=== PATIENT | female | born 1935 | race Caucasian/White ===

== ENCOUNTER → 2017-05-08 | Outpatient (CLI) | payer MEDICARE ==
[~2017-05-08] MED LIST: ALENDRONATE PO; ALPHAGAN 5 ML5 ML; CALCIUM 500500 M1 PO; CITRACAL PO; CYCLOBENZAPRINE10 MG PO; Ecotrin325 MG PO; FOSAMAX70 MG PO; LOVENOX30 MG/0.3 SC; SERTRALINE HCL50 MG PO; SERTRALINE PO; VICODIN 5/500 505 MG PO; VYTORIN 10 MG-21 TA1 PO; [UNRECOGNIZED DRUG - OTHER] PO
[2017-05-08 10:43] LABS: CREATININE 1.23 mg/dL (0.55-1.02); POTASSIUM 3.9 mmol/L (3.5-5.1)
[2017-05-08 10:50] LABS: THYROID STIM HORMONE (HS) 2.49 uIU/ml (0.358-4.75)
== END | disposition home or self-care (01) ==
LOC: LAB 09:48
PROVIDERS: Family Medicine
DX: I10 Essential (primary) hypertension (principal); E78.00 Pure hypercholesterolemia, unspecified; F02.80 Dementia in other diseases classified elsewhere, unspecified severity, without behavioral disturbance, psychotic disturbance, mood disturbance, and anxiety

== ENCOUNTER 2019-01-28 21:01 | Inpatient (IN) | payer MEDICARE ==
[~2019-01-28] VITALS: Ht 154.9 cm; Wt 59.0 kg
--- NOTE | ~2019-01-28 | EKG ---
[place], [place] ELECTROCARDIOGRAM REPORT NAME: DIONE COSTA UNIT #: [id number] ROOM: 408 DOCTOR: KATHE DRAFT REPORT BIRTHDATE: [birth year] [facility] Test Date: 2019-01-28 Test Time: 21:14:15 Pat Name: DIONE COSTA Department: Room: 408 Gender: F Electronic Commerce Specialist: Estela Gonzalez : 1935 Requested By: SULTANA SHOEMAKER Order Number: [id number] Reading MD: Farzana Soni Measurements Intervals [place] Rate: 84 P: 28 PA: 143 QRS: -29 QRSD: 92 T: 24 QT: 383 QTc: 453 Interpretive Statements Sinus rhythm Left ventricular hypertrophy Electronically Signed On 01-29-2019 10:14:46 PDT by Farzana Soni CM:EKGRPT:ELECTROCARDIOGRAM REPORT [id number] SULTANA BURRELL DRAFT REPORT SULTANA SHOEMAKER DO
[~2019-01-28 21:01] MED LIST changes: +CALCIUM + VITA1 EAC2 PO; -CALCIUM 500500 M1 PO; +ECOTRIN81 M1 PO; -Ecotrin325 MG PO
[2019-01-28 21:05] VITALS: BP 148/52
[2019-01-28 22:03] LABS: BASO # 0.1 10*3/uL (0.0-0.1); BASO % 0.4 % (0.0-1.0); EOS % 0.1 % (1.0-4.0); HEMATOCRIT 32.7 % (37.0-47.0); HEMOGLOBIN 10.3 g/dl (12.0-16.0); LYMPH # 0.9 10*3/uL (1.3-4.4); LYMPH % 7.7 % (27.0-41.0); MEAN CELL VOLUME 98.5 fl (81.0-99.0); MEAN CORPUSCULAR HGB CONC 31.5 g/dl (33.0-37.0); MEAN PLATELET VOLUME 9.6 fl (9.6-12.3); MONO # 1.4 10*3/uL (0.1-1.0); MONO % 11.9 % (3.0-9.0); NEUT # 9.4 10*3/uL (2.3-7.9); NEUT % 79.7 % (47.0-73.0); PLATELET COUNT AUTOMATED 335 10*3/uL (130-400); RED BLOOD COUNT 3.32 10*6/uL (4.10-5.10); WHITE BLOOD COUNT 11.8 10*3/uL (4.8-10.8)
[2019-01-28 22:18] LABS: ACT PARTIAL THROMBO TIME 24.8 SECONDS (20.0-32.1); INTERNATIONAL NORM RATIO 0.9 (2.0-3.5)
[2019-01-28 22:19] LABS: ALBUMIN 2.7 gm/dl (3.1-4.5); ALKALINE PHOSPHATASE 101 U/L (45-117); BUN 35 mg/dl (7-24); CHLORIDE 103 mmol/L (98-107); CREATININE 1.45 mg/dL (0.55-1.02); POTASSIUM 3.5 mmol/L (3.5-5.1); SGOT/AST 56 IU/L (3-35); SGPT/ALT 50 U/L (12-78); SODIUM 139 mmol/L (136-145); TOTAL PROTEIN 7.7 gm/dL (6.4-8.2)
[2019-01-28 22:20] LABS: TROPONIN I < 0.015 ng/ml (<0.045)
--- NOTE | 2019-01-28 22:21 | NUR ---
LACTIC ACID 2.2, DR SHOEMAKER AWARE
[2019-01-28 22:28] LABS: BILIRUBIN NEGATIVE (NEGATIVE); BLOOD 2+ (NEGATIVE); CLARITY SL CLOUDY (CLEAR); COLOR YELLOW (YELLOW); GLUCOSE NEGATIVE (NEGATIVE); KETONE NEGATIVE (NEGATIVE); LEUKO ESTERASE 1+ (NEGATIVE); NITRITE NEGATIVE (NEGATIVE); PH 5.5 (5.0-9.0); SPECIFIC GRAVITY 1.025 (1.005-1.030); UROBILINOGEN 0.2 E.U./dl (0.2-1.0)
[2019-01-28 22:38] LABS: BACTERIA 2+
[2019-01-28 22:39] LABS: RBC 16-20 rbc/hpf (0-2)
--- NOTE | 2019-01-28 23:26 | NUR ---
CALLED JESSIE TO INFORM I WOULD BE BRINGING PATIENT UP. DR BAHENA IN THE ROOM AT THIS TIME DOING HIS ASSESSMENT.
[2019-01-28 23:32] VITALS: BP 144/47
[2019-01-28 23:49] VITALS: BP 150/54
--- NOTE | 2019-01-28 23:49 | NUR ---
A 83, admitted to , under the services of RERE Gutierrez DO with a diagnosis of UTI/DEHYDRATION. Chief complaint is DARK URINE WEAKNESS. Patient arrived via being carried from ER. Monitor applied. Initial assessment completed. Vital signs taken and recorded. RERE GUTIERREZ DO notified of admission to the unit. Orders received. See assessment for past medical history, medications and allergies. Patient and/or family oriented to unit. [facility] visitation policy reviewed. Clothing/patient valuable form completed. JESSIE DANIELS
[2019-01-28] MEDS ORDERED: PRINIVIL10 MG PO (23:56)
[2019-01-28] MEDS ORDERED: MEMANTINE HCL E28 MG PO (23:57)
[2019-01-29] MEDS ORDERED: HYDROCHLOROTHIA25 M1 PO (00:05)
[2019-01-29] MEDS ORDERED: LIPITOR20 MG PO (00:05)
[2019-01-29] MEDS ORDERED: CELEXA20 MG PO (00:07)
[2019-01-29] MEDS ORDERED: BENADRYL ALLERG25 M5 PO (00:09)
[2019-01-29] MEDS ORDERED: ARICEPT10 M1 PO (00:11)
[2019-01-29] MEDS ORDERED: ATIVAN0.5 MG PO (00:12)
[2019-01-29] MEDS ORDERED: LATANOPROST 0.7.5 ML OP (00:14)
--- NOTE | 2019-01-29 03:33 | NUR ---
24 HR chart check completed.
--- NOTE | 2019-01-29 05:15 | NUR ---
SLEEPING NO ACUTE DISTRESS NOTED.
[2019-01-29 06:32] LABS: HEMOGLOBIN 9.1 g/dl (12.0-16.0); MEAN CORPUSCULAR HGB 31.1 pg (27.0-31.0); MEAN CORPUSCULAR HGB CONC 31.4 g/dl (33.0-37.0); MEAN PLATELET VOLUME 9.3 fl (9.6-12.3); PLATELET COUNT AUTOMATED 298 10*3/uL (130-400); RED BLOOD COUNT 2.93 10*6/uL (4.10-5.10); RED CELL DISTRI WIDTH 12.9 % (0-14.5); WHITE BLOOD COUNT 10.5 10*3/uL (4.8-10.8)
[2019-01-29 07:02] LABS: BUN 31 mg/dl (7-24); CHLORIDE 108 mmol/L (98-107); CREATININE 1.05 mg/dL (0.55-1.02); FREE T4 1.08 ng/dl (0.76-1.46); POTASSIUM 3.4 mmol/L (3.5-5.1); SODIUM 143 mmol/L (136-145)
[2019-01-29 07:08] LABS: THYROID STIM HORMONE (HS) 0.935 uIU/ml (0.358-4.75)
[2019-01-29 07:29] LABS: TOTAL CELLS COUNTED 100 #CELLS
[2019-01-29 07:42] LABS: PLATELET SUFFICIENCY NORMAL (NORMAL)
[2019-01-29 08:00] VITALS: BP 138/62
[2019-01-29 12:00] VITALS: BP 145/51
--- NOTE | 2019-01-29 12:50 | NUR ---
Director Government in to talk to patient. Patient states lives at home with daughter. There are few steps in the home. Physician: astrid Pharmacy: [facility] Home health services: none Patient's level of ADLs: MINIMAL ASSIST Patient has working utilities: all working DME: walker Follow-up physician's appointment after d/c: will be made by hospitalist nurse director Does patient want to access PORTAL?: no Discharge plan discussed with patient and daughter, daughter stated patient lives with her, patient was ambulating in the home until a few days ago she became extremely weak, discussed with daughter a short term halfway for rehab prior to returning home, daughter declined, stated patient would be going home when able, also discussed with her VNA and she was receptive to this, given choice of companies, daughter chose [facility], will send order to [facility] for when patient is medically stable for discharge. WENDY ANAND
--- NOTE | 2019-01-29 14:10 | NUR ---
case management notified [facility] that patient would like their services upon discharge, patient's information faxed to [facility]
[2019-01-29 16:00] VITALS: BP 147/57
[2019-01-29 20:00] VITALS: BP 177/49
[2019-01-29 20:30] VITALS: BP 158/54
--- NOTE | 2019-01-29 21:52 | NUR ---
ATIVAN GIVEN PER ORDER FOR ANXIETY PT. SHAKING FEELING A LITTLE NERVOUS PER PT.SEE MAR.
[2019-01-30] VITALS: BP 115/43
--- NOTE | 2019-01-30 02:16 | NUR ---
24 HR chart check completed.
--- NOTE | 2019-01-30 04:00 | NUR ---
SLEEPING RESP EASY AND REG. NO ACUTE DISTRESS NOTED.
[2019-01-30 06:04] LABS: HEMATOCRIT 26.8 % (37.0-47.0); HEMOGLOBIN 8.4 g/dl (12.0-16.0); MEAN CELL VOLUME 98.9 fl (81.0-99.0); MEAN CORPUSCULAR HGB CONC 31.3 g/dl (33.0-37.0); MEAN PLATELET VOLUME 9.6 fl (9.6-12.3); PLATELET COUNT AUTOMATED 294 10*3/uL (130-400); RED BLOOD COUNT 2.71 10*6/uL (4.10-5.10); RED CELL DISTRI WIDTH 13.1 % (0-14.5); WHITE BLOOD COUNT 10.2 10*3/uL (4.8-10.8)
[2019-01-30 06:21] LABS: BUN 22 mg/dl (7-24); CHLORIDE 109 mmol/L (98-107); CREATININE 0.95 mg/dL (0.55-1.02); POTASSIUM 4.1 mmol/L (3.5-5.1); SODIUM 142 mmol/L (136-145)
[2019-01-30 07:52] LABS: TOTAL CELLS COUNTED 100 #CELLS
[2019-01-30 07:53] LABS: PLATELET SUFFICIENCY NORMAL (NORMAL)
[2019-01-30 08:00] VITALS: BP 130/70
--- NOTE | 2019-01-30 09:07 | NUR ---
IVF and CM dc'd per orders.
--- NOTE | 2019-01-30 14:30 | NUR ---
Medicated with norco per prn order for complaints of pain to neck.
[2019-01-30 15:45] VITALS: BP 140/52
--- NOTE | 2019-01-30 16:18 | NUR ---
States that norco given earlier was effective for pain.
[2019-01-30 20:00] VITALS: BP 122/64
--- NOTE | 2019-01-30 20:49 | NUR ---
24 HR chart check completed.
[2019-01-31] VITALS: BP 149/59
[2019-01-31 08:00] VITALS: BP 151/50
[2019-01-31] MEDS ORDERED: DOXYCYCLINE100 M3 PO (09:29)
--- NOTE | 2019-01-31 10:34 | NUR ---
Discharge instructions reviewed with patient/family. Patient receptive and verbalizes understanding. Follow-up care arranged. Written instructions given to patient/family. FATMATA PEREZ
== END 2019-01-31 10:34 | disposition home or self-care (01) | DRG 682 ==
LOC: ED 21:01 → 4E 22:49 → EDHOLD 22:49 → 4E 23:27
PROVIDERS: Family Medicine; Internal Medicine; Student in an Organized Health Care Education/Training Program; ADMIT Family Medicine
DX: N17.0 Acute kidney failure with tubular necrosis (principal); E43 Unspecified severe protein-calorie malnutrition; N39.0 Urinary tract infection, site not specified; E87.2 Acidosis; E86.0 Dehydration; B96.1 Klebsiella pneumoniae [K. pneumoniae] as the cause of diseases classified elsewhere; R73.9 Hyperglycemia, unspecified; E87.6 Hypokalemia; N18.3 Chronic kidney disease, stage 3 (moderate); D64.9 Anemia, unspecified; D72.829 Elevated white blood cell count, unspecified; F41.9 Anxiety disorder, unspecified; I12.9 Hypertensive chronic kidney disease with stage 1 through stage 4 chronic kidney disease, or unspecified chronic kidney disease; R31.9 Hematuria, unspecified; Z96.642 Presence of left artificial hip joint; G30.9 Alzheimer's disease, unspecified; F02.80 Dementia in other diseases classified elsewhere, unspecified severity, without behavioral disturbance, psychotic disturbance, mood disturbance, and anxiety; E78.5 Hyperlipidemia, unspecified; F32.9 Major depressive disorder, single episode, unspecified; M19.90 Unspecified osteoarthritis, unspecified site; H40.9 Unspecified glaucoma; Z68.24 Body mass index [BMI] 24.0-24.9, adult; Z79.899 Other long term (current) drug therapy; Z90.710 Acquired absence of both cervix and uterus; Z82.49 Family history of ischemic heart disease and other diseases of the circulatory system

== ENCOUNTER 2019-02-02 11:19 | Inpatient (IN) | payer MEDICARE ==
[~2019-02-02] VITALS: Ht 162.5 cm; Wt 63.1 kg
--- NOTE | ~2019-02-02 | EKG ---
[place], [place] ELECTROCARDIOGRAM REPORT NAME: DIONE COSTA UNIT #: [id number] ROOM: 524 DOCTOR: KATHE DRAFT REPORT BIRTHDATE: [birth year] [facility] Test Date: 2019-02-02 Test Time: 11:41:54 Pat Name: DIONE COSTA Department: Room: 524 Gender: F Brake Liner: Katlyn Summers : 1935 Requested By: ABDIRAHMAN EVANS Order Number: [id number] Reading MD: Farzana Soni Measurements Intervals [place] Rate: 73 P: 42 [place]: 143 QRS: -12 QRSD: 90 T: 31 QT: 411 QTc: 453 Interpretive Statements Sinus rhythm Low voltage, precordial leads Borderline T abnormalities, anterior leads Baseline wander in lead(s) V3,V4 Compared to ECG 01/28/2019 21:14:15 Low QRS voltage now present T-wave abnormality now present Left ventricular hypertrophy no longer present Electronically Signed On 02-03-2019 9:36:35 PDT by Farzana Soni CM:EKGRPT:ELECTROCARDIOGRAM REPORT [id number] ABDIRAHMAN BURRELL DRAFT REPORT ABDIRAHMAN EVANS DO
[~2019-02-02 11:19] MED LIST changes: +ARICEPT10 M1 PO; +ATIVAN0.5 MG PO; +BENADRYL ALLERG25 M5 PO; +CELEXA20 MG PO; +DOXYCYCLINE100 M3 PO; +HYDROCHLOROTHIA25 M1 PO; +LATANOPROST 0.7.5 ML OP; +LIPITOR20 MG PO; +MEMANTINE HCL E28 MG PO; +PRINIVIL10 MG PO
[2019-02-02 11:23] VITALS: BP 164/64
[2019-02-02 11:54] LABS: HEMATOCRIT 29.6 % (37.0-47.0); HEMOGLOBIN 9.3 g/dl (12.0-16.0); MEAN CELL VOLUME 97.7 fl (81.0-99.0); MEAN CORPUSCULAR HGB 30.7 pg (27.0-31.0); MEAN CORPUSCULAR HGB CONC 31.4 g/dl (33.0-37.0); MEAN PLATELET VOLUME 9.2 fl (9.6-12.3); PLATELET COUNT AUTOMATED 418 10*3/uL (130-400); RED BLOOD COUNT 3.03 10*6/uL (4.10-5.10); RED CELL DISTRI WIDTH 12.9 % (0-14.5); WHITE BLOOD COUNT 13.9 10*3/uL (4.8-10.8)
[2019-02-02 12:05] LABS: INTERNATIONAL NORM RATIO 0.9 (2.0-3.5)
[2019-02-02 12:10] LABS: ALBUMIN 2.3 gm/dl (3.1-4.5); ALKALINE PHOSPHATASE 124 U/L (45-117); BUN 15 mg/dl (7-24); CHLORIDE 101 mmol/L (98-107); CREATININE 1.06 mg/dL (0.55-1.02); LIPASE 122 U/L (73-393); POTASSIUM 3.5 mmol/L (3.5-5.1); SGOT/AST 43 IU/L (3-35); SGPT/ALT 41 U/L (12-78); SODIUM 137 mmol/L (136-145); TOTAL PROTEIN 7.2 gm/dL (6.4-8.2)
[2019-02-02 12:11] LABS: TROPONIN I < 0.015 ng/ml (<0.045)
[2019-02-02 12:15] LABS: ATYPICAL LYMPHS 1 % (0-0); PLATELET SUFFICIENCY HIGH (NORMAL); TOTAL CELLS COUNTED 100 #CELLS
[2019-02-02 12:17] LABS: SCHISTOCYTES FEW
[2019-02-02 14:19] LABS: BILIRUBIN NEGATIVE (NEGATIVE); BLOOD NEGATIVE (NEGATIVE); CLARITY CLEAR (CLEAR); COLOR YELLOW (YELLOW); GLUCOSE NEGATIVE (NEGATIVE); KETONE NEGATIVE (NEGATIVE); LEUKO ESTERASE NEGATIVE (NEGATIVE); NITRITE NEGATIVE (NEGATIVE); SPECIFIC GRAVITY <= 1.005 (1.005-1.030); UROBILINOGEN 0.2 E.U./dl (0.2-1.0)
[2019-02-02 14:25] VITALS: BP 159/67
[2019-02-02 14:29] LABS: EPITHELIAL CELLS 0-2
[2019-02-02 16:01] VITALS: BP 131/51
[2019-02-02 16:45] VITALS: BP 166/55
[2019-02-02 20:00] VITALS: BP 148/64
[2019-02-03] VITALS: BP 148/55
[2019-02-03 06:47] LABS: BASO # 0.1 10*3/uL (0.0-0.1); BASO % 0.7 % (0.0-1.0); EOS # 0.3 10*3/uL (0.0-0.4); EOS % 2.6 % (1.0-4.0); HEMATOCRIT 27.6 % (37.0-47.0); HEMOGLOBIN 8.8 g/dl (12.0-16.0); LYMPH # 1.9 10*3/uL (1.3-4.4); LYMPH % 17.8 % (27.0-41.0); MEAN CELL VOLUME 97.2 fl (81.0-99.0); MEAN CORPUSCULAR HGB CONC 31.9 g/dl (33.0-37.0); MEAN PLATELET VOLUME 9.4 fl (9.6-12.3); MONO # 1.4 10*3/uL (0.1-1.0); MONO % 13.6 % (3.0-9.0); NEUT # 6.9 10*3/uL (2.3-7.9); NEUT % 64.9 % (47.0-73.0); PLATELET COUNT AUTOMATED 412 10*3/uL (130-400); RED BLOOD COUNT 2.84 10*6/uL (4.10-5.10); RED CELL DISTRI WIDTH 12.8 % (0-14.5); WHITE BLOOD COUNT 10.6 10*3/uL (4.8-10.8)
[2019-02-03 07:26] LABS: CHLORIDE 102 mmol/L (98-107); POTASSIUM 3.8 mmol/L (3.5-5.1); SODIUM 138 mmol/L (136-145)
[2019-02-03 07:41] LABS: ALBUMIN 2.2 gm/dl (3.1-4.5); ALKALINE PHOSPHATASE 114 U/L (45-117); BUN 13 mg/dl (7-24); CREATININE 0.92 mg/dL (0.55-1.02); PHOSPHOROUS 3.9 mg/dL (2.5-4.9); SGOT/AST 36 IU/L (3-35); SGPT/ALT 36 U/L (12-78); TOTAL PROTEIN 6.4 gm/dL (6.4-8.2)
[2019-02-03 08:00] VITALS: BP 159/54
[2019-02-03 12:00] VITALS: BP 159/60
[2019-02-03 16:00] VITALS: BP 172/53
[2019-02-03 20:00] VITALS: BP 151/41
[2019-02-04] VITALS: BP 140/46
[2019-02-04 06:45] LABS: BASO % 0.1 % (0.0-1.0); HEMATOCRIT 26.4 % (37.0-47.0); HEMOGLOBIN 8.4 g/dl (12.0-16.0); LYMPH # 1.3 10*3/uL (1.3-4.4); LYMPH % 12.2 % (27.0-41.0); MEAN CELL VOLUME 96.7 fl (81.0-99.0); MEAN CORPUSCULAR HGB 30.8 pg (27.0-31.0); MEAN CORPUSCULAR HGB CONC 31.8 g/dl (33.0-37.0); MEAN PLATELET VOLUME 9.6 fl (9.6-12.3); MONO # 0.7 10*3/uL (0.1-1.0); MONO % 6.4 % (3.0-9.0); NEUT # 8.7 10*3/uL (2.3-7.9); NEUT % 80.8 % (47.0-73.0); PLATELET COUNT AUTOMATED 414 10*3/uL (130-400); RED BLOOD COUNT 2.73 10*6/uL (4.10-5.10); RED CELL DISTRI WIDTH 12.7 % (0-14.5); WHITE BLOOD COUNT 10.8 10*3/uL (4.8-10.8)
[2019-02-04 06:58] LABS: ALBUMIN 2.1 gm/dl (3.1-4.5); ALKALINE PHOSPHATASE 111 U/L (45-117); BUN 15 mg/dl (7-24); CHLORIDE 98 mmol/L (98-107); CREATININE 0.94 mg/dL (0.55-1.02); POTASSIUM 4.1 mmol/L (3.5-5.1); SGOT/AST 25 IU/L (3-35); SGPT/ALT 33 U/L (12-78); SODIUM 136 mmol/L (136-145); TOTAL PROTEIN 6.5 gm/dL (6.4-8.2)
[2019-02-04 08:00] VITALS: BP 140/56
[2019-02-04 12:00] VITALS: BP 141/50
[2019-02-04 16:00] VITALS: BP 134/57
[2019-02-04] MEDS ORDERED: PREDNISONE20 M1 PO (16:12)
[2019-02-04] MEDS ORDERED: PREDNISONE10 M1 PO (16:19)
== END 2019-02-04 17:43 | disposition home health service (06) | DRG 947 ==
LOC: ED 11:19 → EDHOLD 16:03 → 5E 16:03
PROVIDERS: Emergency Medicine; Hospitalist; Internal Medicine; ADMIT Internal Medicine
DX: R53.1 Weakness (principal); E43 Unspecified severe protein-calorie malnutrition; N39.0 Urinary tract infection, site not specified; J98.11 Atelectasis; E87.2 Acidosis; J90 Pleural effusion, not elsewhere classified; R26.81 Unsteadiness on feet; N18.3 Chronic kidney disease, stage 3 (moderate); M81.0 Age-related osteoporosis without current pathological fracture; I12.9 Hypertensive chronic kidney disease with stage 1 through stage 4 chronic kidney disease, or unspecified chronic kidney disease; M15.9 Polyosteoarthritis, unspecified; G30.9 Alzheimer's disease, unspecified; F02.80 Dementia in other diseases classified elsewhere, unspecified severity, without behavioral disturbance, psychotic disturbance, mood disturbance, and anxiety; F32.9 Major depressive disorder, single episode, unspecified; Z96.642 Presence of left artificial hip joint; D72.829 Elevated white blood cell count, unspecified; R74.0 Nonspecific elevation of levels of transaminase and lactic acid dehydrogenase [LDH]; R73.9 Hyperglycemia, unspecified; F41.9 Anxiety disorder, unspecified; Z90.710 Acquired absence of both cervix and uterus; Z82.49 Family history of ischemic heart disease and other diseases of the circulatory system; Z84.89 Family history of other specified conditions; Z79.82 Long term (current) use of aspirin; Z79.899 Other long term (current) drug therapy; Z68.23 Body mass index [BMI] 23.0-23.9, adult

== ENCOUNTER 2019-03-16 06:25 | Inpatient (IN) | payer MEDICARE ==
[~2019-03-16] VITALS: Ht 152.4 cm; Wt 61.9 kg
--- NOTE | ~2019-03-16 | EKG ---
[place], [place] ELECTROCARDIOGRAM REPORT NAME: DIONE COSTA UNIT #: [id number] ROOM: 510 DOCTOR: KATHE DRAFT REPORT BIRTHDATE: [birth year] [facility] Test Date: 2019-03-16 Test Time: 11:09:35 Pat Name: DIONE COSTA Department: Room: 510 1 Gender: F Blade Grinder: Jayshree Camejo : 1935 Requested By: KEESHA BAHENA Order Number: [id number] Reading MD: Katya Frye MD Measurements Intervals [place] Rate: 61 P: 36 [place]: 155 QRS: -23 QRSD: 92 T: 33 QT: 441 QTc: 445 Interpretive Statements Sinus rhythm Low voltage, precordial leads Left ventricular hypertrophy Baseline wander in lead(s) V1 Compared to ECG 02/02/2019 11:41:54 Left ventricular hypertrophy now present T-wave abnormality no longer present Electronically Signed On 03-18-2019 8:03:09 PDT by Katya Frye MD CM:EKGRPT:ELECTROCARDIOGRAM REPORT [id number] KEESHA BURRELL DRAFT REPORT KEESHA BAHENA DO
--- NOTE | ~2019-03-16 | EKG ---
[place], [place] ELECTROCARDIOGRAM REPORT NAME: DIONE COSTA UNIT #: [id number] ROOM: 510 DOCTOR: KATHE DRAFT REPORT BIRTHDATE: [birth year] [facility] Test Date: 2019-03-17 Test Time: 09:38:10 Pat Name: DIONE COTSA Department: Room: 510 1 Gender: F Enrollment Consultant: : 1935 Requested By: KEESHA BAHENA Order Number: [id number] Reading MD: Katya Frye MD Measurements Intervals [place] Rate: 100 P: IN: QRS: -40 QRSD: 90 T: 46 QT: 360 QTc: 465 Interpretive Statements Atrial fibrillation Left axis deviation Low voltage, precordial leads Compared to ECG 02/02/2019 11:41:54 Left-axis deviation now present Sinus rhythm no longer present T-wave abnormality no longer present Electronically Signed On 03-18-2019 8:14:24 PDT by Katya Frye MD CM:EKGRPT:ELECTROCARDIOGRAM REPORT KEESHA BURRELL DRAFT REPORT KEESHA BAHENA DO
--- NOTE | ~2019-03-16 | EKG ---
[place], [place] ELECTROCARDIOGRAM REPORT NAME: DIONE COSTA UNIT #: [id number] ROOM: 510 DOCTOR: KATHE DRAFT REPORT BIRTHDATE: [birth year] [facility] Test Date: 2019-03-16 Test Time: 23:31:55 Pat Name: DIONE COSTA Department: Room: 510 1 Gender: F Drosophere Operator: Estela Gonzalez : 1935 Requested By: GOLDEN HENDRIX Order Number: [id number] Reading MD: Katya Frye MD Measurements Intervals [place] Rate: 138 P: [place]: QRS: -5 QRSD: 84 T: 32 QT: 329 QTc: 499 Interpretive Statements Atrial fibrillation with rapid V-rate Compared to ECG 02/02/2019 11:41:54 Sinus rhythm no longer present T-wave abnormality no longer present Electronically Signed On 03-18-2019 8:10:05 PDT by Katya Frye MD CM:EKGRPT:ELECTROCARDIOGRAM REPORT [id number] GOLDEN ARCHULETA DRAFT REPORT GOLDEN HENDRIX MD
[~2019-03-16 06:25] MED LIST changes: +PREDNISONE10 M1 PO; +PREDNISONE20 M1 PO
[2019-03-16 06:30] VITALS: BP 120/60
--- NOTE | 2019-03-16 07:00 | NUR ---
REPORT RECIEVED FROM ASSISTED LIVING CARE MANAGER RN. PT RESTING IN BED. CALL LIGHT WITHIN REACH
[2019-03-16 07:28] LABS: BASO % 0.1 % (0.0-1.0); EOS % 0.1 % (1.0-4.0); HEMATOCRIT 35.4 % (37.0-47.0); HEMOGLOBIN 11.6 g/dl (12.0-16.0); LYMPH # 1.9 10*3/uL (1.3-4.4); LYMPH % 11.2 % (27.0-41.0); MEAN CELL VOLUME 94.4 fl (81.0-99.0); MEAN CORPUSCULAR HGB 30.9 pg (27.0-31.0); MEAN CORPUSCULAR HGB CONC 32.8 g/dl (33.0-37.0); MEAN PLATELET VOLUME 8.4 fl (9.6-12.3); MONO # 1.4 10*3/uL (0.1-1.0); MONO % 8.1 % (3.0-9.0); NEUT # 13.4 10*3/uL (2.3-7.9); NEUT % 79.7 % (47.0-73.0); PLATELET COUNT AUTOMATED 242 10*3/uL (130-400); RED BLOOD COUNT 3.75 10*6/uL (4.10-5.10); WHITE BLOOD COUNT 16.8 10*3/uL (4.8-10.8)
[2019-03-16 07:44] LABS: ALBUMIN 2.8 gm/dl (3.1-4.5); CREATININE 1.25 mg/dL (0.55-1.02); POTASSIUM 3.8 mmol/L (3.5-5.1); TOTAL PROTEIN 6.2 gm/dL (6.4-8.2)
[2019-03-16 08:21] LABS: BILIRUBIN NEGATIVE (NEGATIVE); BLOOD 3+ (NEGATIVE); CLARITY CLOUDY (CLEAR); COLOR YELLOW (YELLOW); GLUCOSE NEGATIVE (NEGATIVE); KETONE NEGATIVE (NEGATIVE); LEUKO ESTERASE 3+ (NEGATIVE); NITRITE NEGATIVE (NEGATIVE); SPECIFIC GRAVITY 1.015 (1.005-1.030)
[2019-03-16 08:49] LABS: BACTERIA 4+; RBC TNTC rbc/hpf (0-2); WBC TNTC wbc/hpf (0-5)
[2019-03-16 10:10] VITALS: BP 151/61
--- NOTE | 2019-03-16 10:10 | NUR ---
A 83, admitted to , under the services of GOLDEN Vila MD with a diagnosis of UTI, FALL, UNABLE TO AMBULATE. Chief complaint is FALL. Patient arrived via bed from ER. Monitor applied. Initial assessment completed. Vital signs taken and recorded. DR. RUMA CHESTER,GOLDEN notified of admission to the unit. Orders received. See assessment for past medical history, medications and allergies. Patient and/or family oriented to unit. [facility] visitation policy reviewed. Clothing/patient valuable form completed. HANNAH VALDEZ
[2019-03-16] MEDS ORDERED: PREDNISONE20 M1 PO (10:33)
[2019-03-16] MEDS ORDERED: WOMEN'S 50 PLU1 EACH PO (10:37)
--- NOTE | 2019-03-16 11:00 | NUR ---
MED REC UPDATED PER MEDICATION BOTTLES BROUGHT IN BY FAMILY.
[2019-03-16 12:00] VITALS: BP 160/60
--- NOTE | 2019-03-16 14:10 | NUR ---
Occupational Therapy evaluation completed on 5 with full eval to follow. Precautions include fall risk; bed, chair alarm, impaired cognition; memory, orientation, h/o recent fall w/o injury, moderate complexity level 06094 via chart review, evaluation, testing. Recommend OT per POC and home with 24 hr supervision and home health SN,OT,PT or SNF. Thank you. Verónica Farrell OTR/l
--- NOTE | 2019-03-16 14:10 | NUR ---
PHYSICAL THERAPY Physical therapy evaluation completed. Full details and evaluation to follow. Low complexity skilled PT evaluation performed (11433). PT will work on strength, balance, safety, gait, and transfers per POC. Recommend SNF at discharge. Thank you Sasha Berkowitz, SPT Reina Izaguirre,PT,DPT
[2019-03-16 16:00] VITALS: BP 146/83
--- NOTE | 2019-03-16 16:00 | NUR ---
POC AND TESTING REVIEWED EXTENSIVELY WITH DEDE AND ELIS. PT REWEIGHED D/T DISCUSSION W/ DAUGHTER OVER PT'S WT [address] HENDRIX'S, COMING IN AT 133LB. PT FOUND TO 136.8LBS AFTER ZEROING THE BED PROPERLY. Patient resting quietly with no c/o discomfort. Respirations easy and regular. Vital signs stable. No overt distress. LASHAUN LUNA
[2019-03-16 20:00] VITALS: BP 109/66
--- NOTE | 2019-03-16 23:24 | NUR ---
NOTIFIED OF HR READING 160S PER AUTO BP CUFF. STAT EKG ORDERED AND INSTRUCTED TO PLACE PT ON HAND SLITTER CONTINUOUS.
--- NOTE | 2019-03-16 23:29 | NUR ---
CALLED BACK. PT UNABLE TO BEAR DOWN TO DUE MENTAL STATUS/CONFUSION. AWARE THAT EKG MAY BE A FEW MINUTES. STATES HE WILL BE UP TO SEE PATIENT.
[2019-03-16 23:30] VITALS: BP 108/56
--- NOTE | 2019-03-16 23:39 | NUR ---
HERE TO SEE PT
--- NOTE | 2019-03-16 23:50 | NUR ---
UNABLE TO REACH AT THIS TIME. INSTRUCTED TO CALL ANSWERING SERVICE AND TRY TO REACH FOR ORDERS. ANSWERING SERVICE CALLED AT THIS TIME REGARDING CONSULT. INFORMATION & CALL BACK NUMBER LEFT WITH REGULATORY TECHNICIAN. CALL BACK REQUESTED SOON POSSIBLE.
[2019-03-17] VITALS (11 sets, daily range): BP systolic 98–118; BP diastolic 44–73
--- NOTE | 2019-03-17 00:10 | NUR ---
CARDIZEM GTT INITIATED ON PT PER 'S ORDER. 10 MG BOLUS FOLLOWED BY 5 MG/HR. HR REMAINS 140S-170S PER CM AT THIS TIME.
--- NOTE | 2019-03-17 00:14 | NUR ---
UPDATED ON PLAN OF CARE.
--- NOTE | 2019-03-17 00:14 | NUR ---
HR HOLDING IN 110S PER CM. MADE AWARE.
[2019-03-17 00:18] LABS: ALBUMIN 2.4 gm/dl (3.1-4.5); ALKALINE PHOSPHATASE 48 U/L (45-117); CHLORIDE 92 mmol/L (98-107); CREATININE 0.92 mg/dL (0.55-1.02); PHOSPHOROUS 3.1 mg/dL (2.5-4.9); POTASSIUM 3.6 mmol/L (3.5-5.1); SGOT/AST 17 IU/L (3-35); SGPT/ALT 30 U/L (12-78); SODIUM 129 mmol/L (136-145); TOTAL PROTEIN 5.5 gm/dL (6.4-8.2)
[2019-03-17 00:19] LABS: BUN 19 mg/dl (7-24)
[2019-03-17 00:21] LABS: TROPONIN I 0.067 ng/ml (<0.045)
--- NOTE | 2019-03-17 00:23 | NUR ---
NOTIFIED OF TROPONIN 0.067.
--- NOTE | 2019-03-17 03:25 | NUR ---
NOTIFIED OF TROPONIN 0.087, UP FROM 0.067.
[2019-03-17 06:09] LABS: BASO % 0.2 % (0.0-1.0); EOS % 0.2 % (1.0-4.0); HEMOGLOBIN 11.2 g/dl (12.0-16.0); LYMPH # 1.8 10*3/uL (1.3-4.4); LYMPH % 14.5 % (27.0-41.0); MEAN CELL VOLUME 92.4 fl (81.0-99.0); MEAN CORPUSCULAR HGB 30.4 pg (27.0-31.0); MEAN CORPUSCULAR HGB CONC 32.9 g/dl (33.0-37.0); MEAN PLATELET VOLUME 8.5 fl (9.6-12.3); MONO % 8.1 % (3.0-9.0); NEUT # 9.5 10*3/uL (2.3-7.9); NEUT % 75.6 % (47.0-73.0); PLATELET COUNT AUTOMATED 242 10*3/uL (130-400); RED BLOOD COUNT 3.68 10*6/uL (4.10-5.10); RED CELL DISTRI WIDTH 15.4 % (0-14.5); WHITE BLOOD COUNT 12.5 10*3/uL (4.8-10.8)
[2019-03-17 06:17] LABS: BUN 16 mg/dl (7-24); CHLORIDE 93 mmol/L (98-107); POTASSIUM 3.7 mmol/L (3.5-5.1); SODIUM 128 mmol/L (136-145)
--- NOTE | 2019-03-17 08:35 | NUR ---
PHYSICAL THERAPY Patient seen this am 1:1 for therapy visit and was supine in bed upon therapist arrival. Patient presented with IV treatment and was alert / oriented x 3. Patient transfers supine to sit EOB with MIN A, tolerating static EOB sit for a minute or so to collect herself. Patient completed sit to stand transfer, then SPT to bedside chair, DELICATESSEN DEPARTMENT MANAGER/CGA without c/o. Patient was very cautious during pivot phase of transfer and needed v/c to maintain good upright posture. Patient also able to perform seated B LE therex, all planes, 2 x 10 reps each to increase LE strength. Patient remained in bedside chair with call light, tray table, telephone and body alarm for safety. Will continue per POC as tolerated, total treatment time 16 minutes. Ezequiel Ford, WATER QUALITY ASSISTANT
--- NOTE | 2019-03-17 11:58 | NUR ---
EDWAR spoke with the patients daughter about SNF. She stated she wanted to talk to the doctors first before making a decision. She stated the patient does have 24hr care at home. -EDWAR Crabtree
--- NOTE | 2019-03-17 12:34 | NUR ---
RECEIVED CALL FROM LAB WITH ELEVATED TROPONIN LEVEL 0.061, CALL PLACED TO HOSPITALIST LINE, SPOKE WITH DR. VICK, ADVISED OF CURRENT RESULT.
--- NOTE | 2019-03-17 12:55 | NUR ---
PHYSICAL THERAPY Patient seen this pm 1:1 for therapy visit and was relaxing supine in bed upon therapist arrival. Patient was pleasant this afternoon visiting with several family members as lunch tray arrived. Patient agreed to take a short walk prior to enjoying her lunch, transfering supine to sit EOB with MIN A x 1. Patient completed sit to stand transfer CGA and ambulated with use of wh walker, 20'x 1, MIN A, demonstrating very slow kathy with decreased stride. Patient needed v/c to improve walker safety / navigation, including "head up" posture while returning to bedside chair. Patient remained in chair with call light, tray table and body alarm. Will continue per POC as tolerated, total treatment time 14 minutes. Ezequiel Ford, TOOTH CUTTER SPUR
--- NOTE | 2019-03-17 14:37 | NUR ---
OT Treatment Note Patient seen this date for 20 minutes of 1:1 Occupational therapy treatment. Patient was seated in recliner upon arrival and was agreeable to OT treatment. Four family members were present upon OT arrival, and one member stayed for the treatment. Patient was A&Ox2, patient was reoriented to current date when provided with options. Patient educated on safe hand placement in preparation for functional sit/stand from chair and had fair carryover of technique. Patient performed functional mobility to bathroom using wheeled walker with Min A. In bathroom, patient provided with edu for safe walker use at sink. Patient participated in grooming tasks while in stance- brushing teeth, combing hair, and washing face. Patient provided with min verbal cues for sequencing during teeth brushing task. Patient performed functional mobility with CGA to the recliner. At recliner, patient provided with verbal cues and tactile cues for safe chair transfers with proper hand placement. While seated, patient participated in lower body dressing task, don/doff socks, with supervision. OT treatment concluded with patient in recliner, chair alarm on, and family members in room. Patient had all needs within reach as well as call valdez in hand. Patient progressing as appropriate. Continue with POC. Fara Cooper OTR/L
--- NOTE | 2019-03-17 15:20 | NUR ---
TOOK OVER CARE OF PATIENT. PATIENT IS RESTING COMFORTABLY IN CHAIR W/ NO SIGNS OF C/O DISTESS. WILL CONTINUE TO MONITOR PATIENT.
--- NOTE | 2019-03-17 15:53 | NUR ---
24 HR chart check completed.
--- NOTE | 2019-03-17 18:54 | NUR ---
CALLED DR. RUSSELL'S ANSWERING SERVICE TO NOTIFY HIM OF PT'S HR SPIKING TO 140'S-150'S OCCASIONALLY AND THAT PT KEEPS GOING IN AND OUT OF A.FIB. AWAITING CALL BACK OR ORDERS.
--- NOTE | 2019-03-17 19:03 | NUR ---
SPOKE WITH DR. WHEELER IN REGARDS TO PT'S CONDITION. HE STATED TO GIVE DIG Q6H X4 DOSES.
--- NOTE | 2019-03-17 19:36 | NUR ---
IV DIG ADMINISTERED SLOWLY PER ORDER AT THIS TIME. HR RANGES 110S-160S PER CM. IRREGULAR. PATIENT DEMONSTRATING NO SYMPTOMS. WILL MONITOR.
[2019-03-18 01:30] VITALS: BP 118/61
--- NOTE | 2019-03-18 01:45 | NUR ---
SPOKE TO REGARDING HR DIPPING INTO 40S-50S AND DIGOXIN ORDERED. INSTRUCTED TO D/C DIGOXIN ORDERS AND JUST KEEP METOPROLOL ON ORDERED.
[2019-03-18 06:27] LABS: BUN 20 mg/dl (7-24); CHLORIDE 94 mmol/L (98-107); CREATININE 0.91 mg/dL (0.55-1.02); SODIUM 130 mmol/L (136-145)
[2019-03-18 08:00] VITALS: BP 124/72
--- NOTE | 2019-03-18 09:45 | NUR ---
PHYSICAL THERAPY Patient seen this am 1;1 for therapy visit and was sitting up in bedside chair with several family members present upon therapist arrival. Patient was alert and very pleasant this morning, voicing no c/o's pain. Patient performed seated B LE therex, all planes, x 15 reps each to increase LE strength, followed by sit to stand transfer, Min A x 1. Patient ambulates with use of wh walker, Min/CGA, 25'x 1 to bathroom, demonstrating slow kathy and decreased stride. Patient was a little unsteady during all 90/180 turns and needed v/c for walker safety / navigation around tight spaces in her room. Patient ambulated additional 15'x 1 while returning to supine in bed and remained in bed with call light, tray table, telephone and bed alarm activated for safety. Will continue per POC as tolerated, total treatment time 23 minutes. Ezequiel Ford, MAINFRAME DEVELOPER
--- NOTE | 2019-03-18 10:26 | NUR ---
BEDSIDE REPORT RECIEVED FROM MAGDA VICK. NO S/S OF DISTRESS AT THIS TIME. PATIENT AWAKE AND ALERT IN BED. ANSWERS QUESTIONS APPROPRIATELY. BED IN LOWEST LOCKED POSITION AND CALL LIGHT WITHIN REACH
--- NOTE | 2019-03-18 10:27 | NUR ---
IN TO ROOM. FAMILY AT BEDSIDE. PATIENT IN BED AWAKE, ALERT. PT PLEASANT AND COOPERATIVE, ALERT TO SELF ONLY. FAMILY EDUCATED ON NEED FOR HOME BED ALARM. BED IN LOWEST LOCKED POSITION AND CALL LIGHT WITHIN REACH. WILL CONTINUE TO MONITOR.
--- NOTE | 2019-03-18 11:30 | NUR ---
OT Treatment Note Patient seen this date for 15 minutes of 1:1 Occupational therapy treatment. Patient was seated up in bed upon arrival and was agreeable to OT treatment. Three family members were present upon OT arrival, but none stayed for the treatment. Patient identified by full name and . Patient educated on safe hand placement in preparation for functional sit to stand from edge of bed and had fair carryover of technique. Patient performed functional mobility to bathroom using wheeled walker with SBA. In bathroom, patient provided with education for safe walker use when sitting on the toilet. Patient completed toilet hygiene and clothing management with SBA. Patient participated in grooming task of washing hands and was provided with min verbal education for sequencing. Patient performed functional mobility with CGA to the recliner. At recliner, patient provided with verbal cues for safe chair transfers with proper hand placement. OT treatment concluded with patient in recliner, chair alarm on, and family members in room. Patient had all needs within reach as well as call valdez in hand. Continue with POC and discharge home with 24 hour supervision and OT, PT and SN. Brandon Jose S/OT Verónica Farrell OTR/l
[2019-03-18 12:00] VITALS: BP 114/48
--- NOTE | 2019-03-18 12:07 | NUR ---
TALKED WITH PT DAUGHTER, SHE WANTS TO TAKE MOTHER HOME IF DOCTOR FEELS IT IS SAFE FOR HER TO GO. DAUGHTER STATES PT HEART RATE HAS BEEN INCREASING WHEN SHE GETS UP AND THAT WOULD BE THE ONLY REASON THAT SHE WOULD NOT WANT TO TAKE HER HOME, BUT IF THE DOCTORS FEEL IT IS OK THAT IS WHAT SHE WANTS TO DO. DAUGHTER STATES PT HAS 24 HOUR CARE AT HOME. INFORMED HER SHE CAN BUY A BODY ALARM ON [address] FOR ABOUT 20 DOLLARS THAT WOULD LET HER KNOW IF HER MOTHER WAS TRYING TO GET UP BY HERSELF AT NIGHT. STATES SHE WILL LOOK INTO THAT. WILL CONTINUE TO FOLLOW.
--- NOTE | 2019-03-18 13:35 | NUR ---
PATIENT UP IN CHAIR. FAMILY IN ROOM. ALERT TO PERSON. PLEASANT AND COOPERATIVE. NO SOB NOTED AT REST. NO S/S OF DISTRESS. DENIES PAIN AND NO STATED COMPLAINTS AT THIS TIME. CHAIR IS IN LOCKED POSITION AND CALL LIGHT IS WITHIN REACH. WILL CONTINUE TO MONITOR.
[2019-03-18] MEDS ORDERED: XARE15TA PO (14:18)
[2019-03-18] MEDS ORDERED: MEMANTINE HCL10 MG PO (14:18)
[2019-03-18] MEDS ORDERED: METOPROLOL SUCC25 M2 PO (14:18)
[2019-03-18] MEDS ORDERED: CIPROFLOXACIN250 MG PO (14:18)
--- NOTE | 2019-03-18 15:12 | NUR ---
PHYSICAL THERAPY CO-SIGN I approve of the Physical Therapy notes written above. LEXY TRAORE PT,DPT
--- NOTE | 2019-03-18 15:30 | NUR ---
Discharge instructions reviewed with patient/family. Patient receptive and verbalizes understanding. Follow-up care arranged. Written instructions given to patient/family. MARGAUX VALERO
== END 2019-03-18 15:30 | disposition home or self-care (01) | DRG 871 ==
LOC: ED 06:25 → EDHOLD 09:07 → 5E 09:07 → 4E 09:14 → 5E 09:58
PROVIDERS: Emergency Medicine; Family Medicine; Internal Medicine; ADMIT Family Medicine
DX: A41.9 Sepsis, unspecified organism (principal); N17.0 Acute kidney failure with tubular necrosis; E43 Unspecified severe protein-calorie malnutrition; G93.41 Metabolic encephalopathy; G93.40 Encephalopathy, unspecified; N39.0 Urinary tract infection, site not specified; E87.1 Hypo-osmolality and hyponatremia; J98.11 Atelectasis; R26.2 Difficulty in walking, not elsewhere classified; R53.1 Weakness; Z66 Do not resuscitate; Z51.5 Encounter for palliative care; D64.9 Anemia, unspecified; E86.0 Dehydration; I48.91 Unspecified atrial fibrillation; E78.5 Hyperlipidemia, unspecified; N18.3 Chronic kidney disease, stage 3 (moderate); F41.9 Anxiety disorder, unspecified; Z96.642 Presence of left artificial hip joint; F32.9 Major depressive disorder, single episode, unspecified; G30.9 Alzheimer's disease, unspecified; I35.1 Nonrheumatic aortic (valve) insufficiency; B95.1 Streptococcus, group B, as the cause of diseases classified elsewhere; F02.80 Dementia in other diseases classified elsewhere, unspecified severity, without behavioral disturbance, psychotic disturbance, mood disturbance, and anxiety; I12.9 Hypertensive chronic kidney disease with stage 1 through stage 4 chronic kidney disease, or unspecified chronic kidney disease; M19.90 Unspecified osteoarthritis, unspecified site; M81.0 Age-related osteoporosis without current pathological fracture; Z90.710 Acquired absence of both cervix and uterus; Z82.49 Family history of ischemic heart disease and other diseases of the circulatory system; Z80.8 Family history of malignant neoplasm of other organs or systems; Z79.82 Long term (current) use of aspirin; Z79.899 Other long term (current) drug therapy; Z79.52 Long term (current) use of systemic steroids; Z68.30 Body mass index [BMI] 30.0-30.9, adult

== ENCOUNTER 2019-03-26 11:16 | Inpatient (IN) | payer MEDICARE ==
[~2019-03-26] VITALS: Ht 154.9 cm; Wt 57.2 kg
--- NOTE | ~2019-03-26 | EKG ---
[place], [place] ELECTROCARDIOGRAM REPORT NAME: DIONE COSTA UNIT #: [id number] ROOM: 419 DOCTOR: KATHE DRAFT REPORT BIRTHDATE: [birth year] [facility] Test Date: 2019-03-26 Test Time: 11:44:44 Pat Name: DIONE COSTA Department: Room: 419 Gender: F Cage Cashier: Jayshree Camejo : 1935 Requested By: RERE RAMEY Order Number: [id number] Reading MD: Farzana Soni Measurements Intervals [place] Rate: 52 P: 61 RI: 141 QRS: -13 QRSD: 96 T: 35 QT: 458 QTc: 426 Interpretive Statements Sinus bradycardia Low voltage, precordial leads Probable left ventricular hypertrophy Compared to ECG 03/17/2019 09:38:10 Atrial fibrillation no longer present Left-axis deviation no longer present Electronically Signed On 03-29-2019 11:26:35 PDT by Farzana Soni CM:EKGRPT:ELECTROCARDIOGRAM REPORT [id number] RERE BURRELL DRAFT REPORT RERE RAMEY DO
[2019-03-26 11:16] VITALS: BP 129/49
[~2019-03-26 11:16] MED LIST changes: +CIPROFLOXACIN250 MG PO; +MEMANTINE HCL10 MG PO; +METOPROLOL SUCC25 M2 PO; +WOMEN'S 50 PLU1 EACH PO; +XARE15TA PO
[2019-03-26 11:58] LABS: BASO % 0.2 % (0.0-1.0); EOS # 0.1 10*3/uL (0.0-0.4); EOS % 0.4 % (1.0-4.0); HEMATOCRIT 35.3 % (37.0-47.0); HEMOGLOBIN 11.8 g/dl (12.0-16.0); LYMPH # 1.5 10*3/uL (1.3-4.4); LYMPH % 10.3 % (27.0-41.0); MEAN CELL VOLUME 93.1 fl (81.0-99.0); MEAN CORPUSCULAR HGB 31.1 pg (27.0-31.0); MEAN CORPUSCULAR HGB CONC 33.4 g/dl (33.0-37.0); MEAN PLATELET VOLUME 8.7 fl (9.6-12.3); MONO # 1.1 10*3/uL (0.1-1.0); MONO % 7.5 % (3.0-9.0); NEUT # 11.9 10*3/uL (2.3-7.9); NEUT % 80.3 % (47.0-73.0); PLATELET COUNT AUTOMATED 303 10*3/uL (130-400); RED BLOOD COUNT 3.79 10*6/uL (4.10-5.10); RED CELL DISTRI WIDTH 14.9 % (0-14.5); WHITE BLOOD COUNT 14.8 10*3/uL (4.8-10.8)
[2019-03-26 12:00] VITALS: BP 120/48
[2019-03-26 12:09] LABS: ACT PARTIAL THROMBO TIME 27.6 SECONDS (20.0-32.1); INTERNATIONAL NORM RATIO 1.2 (2.0-3.5)
[2019-03-26 12:13] LABS: ALBUMIN 2.7 gm/dl (3.1-4.5); CREATININE 1.16 mg/dL (0.55-1.02); POTASSIUM 3.5 mmol/L (3.5-5.1); TOTAL PROTEIN 6.3 gm/dL (6.4-8.2); TROPONIN I 0.041 ng/ml (<0.045)
[2019-03-26 12:56] LABS: BILIRUBIN NEGATIVE (NEGATIVE); BLOOD NEGATIVE (NEGATIVE); CLARITY CLOUDY (CLEAR); COLOR YELLOW (YELLOW); GLUCOSE NEGATIVE (NEGATIVE); KETONE NEGATIVE (NEGATIVE); LEUKO ESTERASE NEGATIVE (NEGATIVE); NITRITE NEGATIVE (NEGATIVE); UROBILINOGEN 0.2 E.U./dl (0.2-1.0)
[2019-03-26 13:00] VITALS: BP 122/50
[2019-03-26 13:25] LABS: BACTERIA TRACE
[2019-03-26 14:00] VITALS: BP 156/45
--- NOTE | 2019-03-26 17:00 | NUR ---
ATTEMPT MADE TO CALL ICU FOR PT TRANSFER. ICU NURSES NOT AVAILABLE AT THIS TIME. RN SPOKE WITH COPING MACHINE ASSEMBLER AND LEFT MESSAGE FOR NURSE TO CALL WHEN SHE IS ABLE TO ACCEPT PT.
--- NOTE | 2019-03-26 17:25 | NUR ---
A SECOND ATTEMPT MADE TO GET PT TO THE ICU FOR ADMISSION. ICU NURSES "NOT AVAILABLE" MESSAGE LEFT TO HAVE NURSE CALL WHEN AVAILABLE.
[2019-03-26 17:55] VITALS: BP 143/51
--- NOTE | 2019-03-26 18:07 | NUR ---
Time: 1754 A 83 year old FEMALE admitted to ICCU under services of ROCAEL MCCANN DO. Pt. arrived via stretcher from ER. Chief complaint: FAMILY STATES PT. IS LESS TALKATIVE AND NOT QUITE HERSELF. NETTIE MAYNARD
--- NOTE | 2019-03-26 20:06 | NUR ---
PT DOZING ON HER SIDE. IVF INFUSE ORDERED. BED EXIT ALARM REMAINS ON.
[2019-03-27] VITALS: BP 118/70
--- NOTE | 2019-03-27 00:10 | NUR ---
PT ATTEMPTING TO GET OOB "I HAVE TO GO TO THE BATHROOM. ASSISTED UP TO BSC TO VOID AND BACK TO BED. CALL LIGHT IN REACH AND BED EXIT ALARM ON AND FUNCTIONAL.
--- NOTE | 2019-03-27 03:35 | NUR ---
PT SLEEPING WITH EVEN, UNLABORED RESPIRATIONS.
--- NOTE | 2019-03-27 04:18 | NUR ---
PT SLEEPING ON HER LT SIDE.
[2019-03-27 06:16] LABS: BUN 19 mg/dl (7-24); CHLORIDE 96 mmol/L (98-107); CREATININE 0.99 mg/dL (0.55-1.02); SODIUM 132 mmol/L (136-145)
[2019-03-27 06:17] LABS: BASO % 0.2 % (0.0-1.0); EOS # 0.1 10*3/uL (0.0-0.4); EOS % 0.4 % (1.0-4.0); HEMATOCRIT 32.5 % (37.0-47.0); HEMOGLOBIN 10.6 g/dl (12.0-16.0); LYMPH # 2.2 10*3/uL (1.3-4.4); LYMPH % 17.2 % (27.0-41.0); MEAN CELL VOLUME 92.6 fl (81.0-99.0); MEAN CORPUSCULAR HGB 30.2 pg (27.0-31.0); MEAN CORPUSCULAR HGB CONC 32.6 g/dl (33.0-37.0); MEAN PLATELET VOLUME 8.9 fl (9.6-12.3); MONO # 1.2 10*3/uL (0.1-1.0); MONO % 9.2 % (3.0-9.0); NEUT % 71.5 % (47.0-73.0); PLATELET COUNT AUTOMATED 285 10*3/uL (130-400); RED BLOOD COUNT 3.51 10*6/uL (4.10-5.10); RED CELL DISTRI WIDTH 14.7 % (0-14.5); WHITE BLOOD COUNT 12.6 10*3/uL (4.8-10.8)
[2019-03-27 07:29] LABS: VITAMIN D, 25-HYDROXY 49.2 ng/mL (30-100)
[2019-03-27 08:00] VITALS: BP 165/50
--- NOTE | 2019-03-27 08:39 | NUR ---
Awake and alert to person and place. Re-oriented to time. Breakfast ordered , arrived and taken well.
--- NOTE | 2019-03-27 10:46 | NUR ---
Ambulatory to bathroom with walker. Dr. Raymundo in.
--- NOTE | 2019-03-27 14:16 | NUR ---
Family in to visit. remains up in chair , ambulatory to BR x2 w/ walker.
[2019-03-27 15:42] VITALS: BP 122/37
--- NOTE | 2019-03-27 17:56 | NUR ---
fAMILY IN MOST OF DAY TO VISIT. PLEASENT. tOOK SUPPER INDEPENDENTLY AND WELL.
[2019-03-27 20:00] VITALS: BP 172/50
[2019-03-27 20:15] VITALS: BP 140/45
--- NOTE | 2019-03-27 22:11 | NUR ---
PT APPEARS COMFORTABLE. POSITIONS SELF SIDE TO SIDE WITH EASE. BED EXIT ALARM ON FOR SAFETY.
[2019-03-27 23:00] VITALS: BP 148/56
--- NOTE | 2019-03-28 02:20 | NUR ---
PT SLEEPS WITH EVEN, UNLABORED RESPIRATIONS.
--- NOTE | 2019-03-28 04:08 | NUR ---
PT ASSISTED TO BSC TO VOID AND BACK TO BED. BED EXIT ALARM REMAINS ON.
[2019-03-28 06:21] LABS: BUN 13 mg/dl (7-24); CHLORIDE 93 mmol/L (98-107); POTASSIUM 4.1 mmol/L (3.5-5.1); SODIUM 131 mmol/L (136-145)
[2019-03-28 06:33] LABS: CREATININE 1.01 mg/dL (0.55-1.02)
[2019-03-28 06:43] LABS: BASO % 0.2 % (0.0-1.0); EOS % 0.1 % (1.0-4.0); HEMATOCRIT 32.5 % (37.0-47.0); HEMOGLOBIN 10.8 g/dl (12.0-16.0); LYMPH # 2.4 10*3/uL (1.3-4.4); LYMPH % 18.1 % (27.0-41.0); MEAN CELL VOLUME 92.6 fl (81.0-99.0); MEAN CORPUSCULAR HGB 30.8 pg (27.0-31.0); MEAN CORPUSCULAR HGB CONC 33.2 g/dl (33.0-37.0); MONO # 1.2 10*3/uL (0.1-1.0); MONO % 9.2 % (3.0-9.0); NEUT # 9.4 10*3/uL (2.3-7.9); NEUT % 70.7 % (47.0-73.0); PLATELET COUNT AUTOMATED 297 10*3/uL (130-400); RED BLOOD COUNT 3.51 10*6/uL (4.10-5.10); RED CELL DISTRI WIDTH 14.9 % (0-14.5); WHITE BLOOD COUNT 13.2 10*3/uL (4.8-10.8)
[2019-03-28 08:00] VITALS: BP 172/50
--- NOTE | 2019-03-28 08:28 | NUR ---
DR SIMENTAL IN TO SEE PT. UPDATED HIM ON PT'S ELEVATED BP. NEW ORDERS RECEIVED.
--- NOTE | 2019-03-28 09:56 | NUR ---
PO TOPROL HELD DUE TO PT'S HR IN THE 50'S.
--- NOTE | 2019-03-28 10:13 | NUR ---
PT'S DAUGHTER IN TO VISIT. UPDATED HER ON PT'S CONDITION AND PLAN OF CARE.
[2019-03-28 12:00] VITALS: BP 119/69; BP 158/84
--- NOTE | 2019-03-28 12:23 | NUR ---
TRANSFERED PT TO 419 VIA BED. PT'S FAMILY AT BEDSIDE.
--- NOTE | 2019-03-28 12:30 | NUR ---
PATIENT AND BELONGINGS TRANSFERRED TO [facility]. PATIENT ALERT, PLEASANTLY DISORIENTED. RESPIRATIONS EASY. LUNGS DIMINISHED, CLEAR. TEDS IN PLACE. ORIENTED TO ROOM, STAFF, CALL SYSTEM. BED ALARM APPLIED FOR SAFETY. FAMILY PRESENT AT BEDSIDE
--- NOTE | 2019-03-28 13:00 | NUR ---
24 HR chart check completed.
[2019-03-28 16:00] VITALS: BP 140/52
--- NOTE | 2019-03-28 16:30 | NUR ---
RESTING. NO DISTRESS NOTED. FAMILY REMAINS AT BEDSIDE. CALL LIGHT WITHIN REACH. BED ALARM MAINTAINED FOR SAFETY
--- NOTE | 2019-03-28 18:00 | NUR ---
CONTINUES TO VISIT WITH FAMILY WITH NO DISTRESS NOTED. BED ALARM MAINTAINED
[2019-03-28 20:00] VITALS: BP 146/48; BP 146/483
--- NOTE | 2019-03-28 21:16 | NUR ---
NOTIFIED DR. VICK OF PATIENT'S BLOOD PRESSURE AND PULSE OF 146/48 AND 63 WITH METOPROLOL 25 MG ORDERED THAT HAS BEEN HELD THE LAST [address] VICK STATED TO GIVE THE METOPROLOL.
--- NOTE | 2019-03-28 23:00 | NUR ---
PATIENT SLEEPING IN BED WITH BED ALARM ON AND CALL LIGHT WITHIN REACH. NO DISTRESS NOTED. WILL CONTINUE TO MONITOR.
--- NOTE | 2019-03-28 23:43 | NUR ---
24 HR chart check completed.
[2019-03-29] VITALS: BP 155/57
[2019-03-29 08:00] VITALS: BP 121/79
[2019-03-29 08:05] LABS: HEMATOCRIT 38.3 % (37.0-47.0); HEMOGLOBIN 12.7 g/dl (12.0-16.0); MEAN CELL VOLUME 91.6 fl (81.0-99.0); MEAN CORPUSCULAR HGB 30.4 pg (27.0-31.0); MEAN CORPUSCULAR HGB CONC 33.2 g/dl (33.0-37.0); MEAN PLATELET VOLUME 8.8 fl (9.6-12.3); PLATELET COUNT AUTOMATED 366 10*3/uL (130-400); RED BLOOD COUNT 4.18 10*6/uL (4.10-5.10); RED CELL DISTRI WIDTH 14.8 % (0-14.5); WHITE BLOOD COUNT 18.2 10*3/uL (4.8-10.8)
[2019-03-29 08:15] VITALS: BP 118/72
[2019-03-29 08:30] LABS: BUN 14 mg/dl (7-24); CHLORIDE 92 mmol/L (98-107); CREATININE 1.03 mg/dL (0.55-1.02); POTASSIUM 3.3 mmol/L (3.5-5.1); SODIUM 131 mmol/L (136-145)
[2019-03-29 08:32] LABS: PLATELET SUFFICIENCY NORMAL (NORMAL); SCHISTOCYTES FEW; TOTAL CELLS COUNTED 100 #CELLS
--- NOTE | 2019-03-29 08:50 | NUR ---
DRILL SERGEANT received notice of [facility]. DRILL SERGEANT faxed [facility] referral to [facility]. Will need PT/OT [facility] to complete the referral. -EDWAR Crabtree
--- NOTE | 2019-03-29 08:59 | NUR ---
PHYSICAL THERAPY Nursing screen received and chart reviewed. Physical therapy referral received. Thank you. Reina Izaguirre,PT,DPT
--- NOTE | 2019-03-29 09:27 | NUR ---
Daughter would like her mother referred [facility]. flume worker notified.
--- NOTE | 2019-03-29 10:00 | NUR ---
Patient resting comfortably in bed with elevated HOB. Denies any c/o discomfort. Family here visiting. Call light within reach. Alex BOWDEN
--- NOTE | 2019-03-29 10:37 | NUR ---
Occupational therapy orders received. Occupational therapy evaluation and POC completed in full on floor four. Patient precautions include fall risk, ww use, decreased endurance, and [place]. Per OT eval and chart review, OT recommends patient discharge to SNF. [place] complexity [place], [address]. Patient would benefit from continued OT treatment to maximize independence in ADLs and functional mobility/transfers. Thank you for the referral. Fara Cooper, OTR/L
--- NOTE | 2019-03-29 10:37 | NUR ---
PHYSICAL THERAPY Physical therapy evaluation completed. Full details and evaluation to follow. Low complexity skilled PT evaluation performed (30304). PT will work on strength, transfers, gait, safety, and balance per POC. Recommend SNF upon discharge. Thank you, Sasha Berkowitz, SPT Reina Izaguirre,PT,DPT
--- NOTE | 2019-03-29 11:18 | NUR ---
PHYSIOTHERAPIST'S ASSISTANT spoke with the patients daughter about no beds at [facility]. The daughter stated she did not want the patient in a long term setting. She stated that she has been talking to Palliative Care RN- Janessa about Palliative/Hospice. She stated she is leaning towards taking the patient home with those services. PHYSIOTHERAPIST'S ASSISTANT to follow. -EDWAR Crabtree
[2019-03-29 12:00] VITALS: BP 112/52
--- NOTE | 2019-03-29 13:35 | NUR ---
PALLIATIVE CARE NOTIFIED OF CONSULT.
[2019-03-29 16:00] VITALS: BP 119/62
--- NOTE | 2019-03-29 16:28 | NUR ---
dr. rangel informed of troponin level.
[2019-03-29 20:00] VITALS: BP 117/52
--- NOTE | 2019-03-29 20:00 | NUR ---
Patient resting quietly with no c/o discomfort. Respirations easy and regular. Vital signs stable. No overt distress. SINA HICKMAN
[2019-03-30] VITALS: BP 130/55
--- NOTE | 2019-03-30 01:43 | NUR ---
PATIENT SLEEPING QUIETLY IN BED. BED ALARM ON FOR PATIENT SAFETY. BED IN LOWEST POSITION. CALL LIGHT WITHIN REACH. NO DISTRESS NOTED.
--- NOTE | 2019-03-30 03:01 | NUR ---
24 HR chart check completed.
--- NOTE | 2019-03-30 07:36 | NUR ---
OT NOTE PATIENT SEEN FOR 1:1 15 MINUTE SESSION AND IDENTIFIED BY NAME AND DATE OF . PATIENT SUPINE IN BED UPON ARRIVAL. PATIENT STATED NO PAIN AT THIS TIME. SIT TO STAND COMPLETED 3X WITH VERBAL CUES FOR SAFETY AND PROPER BODY MECHANICS. SIT TO STAND REQUIRED CGA. WHILE STANDING PATIENT ABLE TO REACH IN ALL DIRECTIONS TO IMPROVE BALANCE. BED MOBILITY COMPLETED AT [facility]. PATIENT ENDED SESSION SUPINE IN BED WITH HOB ELEVATED AND BED ALARM ACTIVE SHIMA STANFORD
[2019-03-30 08:00] VITALS: BP 138/88
--- NOTE | 2019-03-30 10:10 | NUR ---
PHYSICAL THERAPY Patient seen this am 1:1 for therapy visit and was supine in bed with student nurse present upon therapist arrival. Patient was pleasant, but a little confused at times, transfering supine to sit EOB with MIN A. Patient performed sit to stand IT NETWORK ARCHITECT/Min and ambulated IT NETWORK ARCHITECT/CGA, 20'x 1, demonstrating unsteady gait pattern / decreased stride. Patient needed v/c for safe step sequence while stepping into walk in shower. Patient remained in bathroom under Student Nurse Supervision for patient care. Will continue per POC as tolerated, total treatment time 13 minutes. Ezequiel Ford, CARTON MARKER MACHINE
--- NOTE | 2019-03-30 10:30 | NUR ---
Another Multi-Disciplinary Team meeting was held on 03/30/19, for the purpose of discharge planning. patient will be discharged to home today with a possible hospice referral for WENDY Chow
--- NOTE | 2019-03-30 11:58 | NUR ---
FAN ENGINE ENGINEER spoke with Lizett-[facility]. Lizett stated the patients daughter has been in contact with her agency and is requesting a consult with them when the patient returns home and not while in our facility. -EDWAR Crabtree
[2019-03-30 12:00] VITALS: BP 125/45
[2019-03-30] MEDS ORDERED: LISINOPRIL20 MG PO (13:44)
--- NOTE | 2019-03-30 14:04 | NUR ---
Discharge instructions reviewed with patient/family. Patient daughter receptive and verbalizes understanding. Follow-up care understood. Written instructions given to patient/family. iv removed, dressing applied. 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
--- NOTE | 2019-03-30 16:01 | NUR ---
OCCUPATIONAL THERAPY CO-SIGN I approve of the Occupational Therapy notes written above. RADHA AREVALO OTR/Bubba
--- NOTE | 2019-03-30 17:18 | NUR ---
PHYSICAL THERAPY CO-SIGN I approve of the Physical Therapy notes written above. LEXY TRAORE PT,DPT
== END 2019-03-30 14:04 | disposition home or self-care (01) | DRG 640 ==
LOC: ED 11:16 → 4E 12:49 → EDHOLD 12:49 → ICCU 16:50 → 4E 03-28 08:05
PROVIDERS: Family Medicine; Internal Medicine; ADMIT Internal Medicine
DX: E87.1 Hypo-osmolality and hyponatremia (principal); E43 Unspecified severe protein-calorie malnutrition; E86.0 Dehydration; D72.829 Elevated white blood cell count, unspecified; R73.9 Hyperglycemia, unspecified; D64.9 Anemia, unspecified; E78.5 Hyperlipidemia, unspecified; F41.9 Anxiety disorder, unspecified; F02.80 Dementia in other diseases classified elsewhere, unspecified severity, without behavioral disturbance, psychotic disturbance, mood disturbance, and anxiety; G30.9 Alzheimer's disease, unspecified; I48.0 Paroxysmal atrial fibrillation; F32.9 Major depressive disorder, single episode, unspecified; J44.9 Chronic obstructive pulmonary disease, unspecified; I12.9 Hypertensive chronic kidney disease with stage 1 through stage 4 chronic kidney disease, or unspecified chronic kidney disease; N18.3 Chronic kidney disease, stage 3 (moderate); M19.90 Unspecified osteoarthritis, unspecified site; Z96.642 Presence of left artificial hip joint; R00.1 Bradycardia, unspecified; Z79.82 Long term (current) use of aspirin; Z90.710 Acquired absence of both cervix and uterus; Z68.23 Body mass index [BMI] 23.0-23.9, adult; Z80.9 Family history of malignant neoplasm, unspecified